=== PATIENT | female | born 1960 | race Caucasian/White ===

== ENCOUNTER → 2022-02-28 08:04 | Outpatient (CLI) | payer OTHER, SELFPAY ==
[2018-03-13 16:05] VITALS: BMI 23.3
--- NOTE | 2022-02-28 | DI.MG.S_ITS ---
BILATERAL DIGITAL SCREENING MAMMOGRAM 3D/2D WITH CAD: 02/28/2022 CLINICAL: Routine screening. Family history of breast cancer. Comparison is made to exams dated: 07/28/2019 mammogram, 07/24/2018 mammogram, and 01/17/2017 mammogram - [facility]. There are scattered fibroglandular elements in both breasts. Current study was also evaluated with a Computer Aided Detection (CAD) system. There is a biopsy clip in the right breast. No significant masses, calcifications, or other findings are seen in either breast. There has been no significant interval change. IMPRESSION: NEGATIVE There is no mammographic evidence of malignancy. A 1 year screening mammogram is recommended. This exam was interpreted at Station ID: [id number]. NOTE: For mammograms, a report in lay terms will be sent to the patient. Approximately 15% of breast malignancies will not be visualized mammographically. In the management of a palpable breast mass, a negative mammogram must not discourage biopsy of a clinically suspicious lesion. Electronically Signed By: Maximo Galeano M.D., jr/julia:02/28/2022 08:45:21 letter sent: Normal Exam ACR BI-RADS Category 1: Negative 3341F
== END ==
PROVIDERS: Family Provider Family Medicine; PCP Family Medicine; Referring Provider Family Medicine; Visit Provider Family Medicine
DX: Z12.31 Encounter for screening mammogram for malignant neoplasm of breast (principal); Z80.3 Family history of malignant neoplasm of breast
CPT/HCPCS: 77063; 77067

== ENCOUNTER → 2024-05-21 11:01 | Outpatient (CLI) | payer OTHER, SELFPAY ==
[2018-03-13 16:05] VITALS: BMI 23.3
--- NOTE | 2024-05-21 | DI.MG.S_ITS ---
BILATERAL DIGITAL SCREENING MAMMOGRAM 3D/2D WITH CAD: 05/21/2024 CLINICAL: Routine screening. Family history of breast cancer. Comparison is made to exams dated: 02/28/2022 mammogram - [facility], 07/28/2019 mammogram, and 07/24/2018 mammogram - [facility]. There are scattered areas of fibroglandular density in both breasts (category b / 25%-50% glandular tissue). Current study was also evaluated with a Computer Aided Detection (CAD) system. There is a biopsy clip in the right breast. No significant masses, calcifications, or other findings are seen in either breast. There has been no significant interval change. IMPRESSION: NEGATIVE There is no mammographic evidence of malignancy. A 1 year screening mammogram is recommended. Based on the Tyrer Cuzick model (a risk assessment model) the patient's lifetime risk is 17.6% and her 10 year risk is 7.8%. According to the ACR, ACS, and NCCN guidelines, an annual breast MRI exam along with mammogram is recommended if the patient's lifetime risk is 20% or greater. This exam was interpreted at Station ID: [id number]. NOTE: For mammograms, a report in lay terms will be sent to the patient. Approximately 15% of breast malignancies will not be visualized mammographically. In the management of a palpable breast mass, a negative mammogram must not discourage biopsy of a clinically suspicious lesion. Electronically Signed By: Homero suresh/julia:05/21/2024 12:19:33 letter sent: Normal Exam ACR BI-RADS Category 1: Negative 3341F
== END ==
LOC: MAMMO 11:02
PROVIDERS: Family Provider Family Medicine; PCP Family Medicine; Referring Provider Family Medicine; Visit Provider Family Medicine
DX: Z12.31 Encounter for screening mammogram for malignant neoplasm of breast (principal); Z80.3 Family history of malignant neoplasm of breast; R92.323 Mammographic fibroglandular density, bilateral breasts
CPT/HCPCS: 77063; 77067

== ENCOUNTER 2024-06-04 07:56 | Day surgery (SDC) | payer OTHER, SELFPAY ==
[2018-03-13 16:05] VITALS: BMI 23.3
[2024-06-04 08:14] VITALS: BP 143/78; PULSE 71; RESP 18; TEMP 36.6; O2SAT 96
[2024-06-04] MEDS: LACTATED RINGERS 1,000 ML 42 ML IV (08:31)
--- NOTE | 2024-06-04 08:32 | SUR.PREOP ---
Aiden to take glasses.
--- NOTE | 2024-06-04 09:02 | PM.HP.1 ---
History of Present Illness History of Present Illness Date Patient Seen: 06/04/24 Time Patient Seen: 09:08 Chief complaint: SDC Narrative: Second colonoscopy, H/o polyps. has been about 10 years since the last. [facility] Medical History Colonoscopy planned Hemorrhoids Amputation foot, unilat Surgical History S/P ankle ligament repair Etters teeth removed History of third molar tooth extraction Status post amputation of extremity Social History household members: spouse, children and friend(s) Smoking Status: Never smoker alcohol intake: current Meds Home Medications and Allergies Home Medications Medication Instructions Recorded Confirmed Type [REDESTA VITAMIN D] 1 wafer PO MONTHLLY ##0 08/28/17 03/11/18 History multivitamin (Multiple Vitamins 1 tab PO QDAY ##0 08/28/17 03/13/18 History tablet) venlafaxine 75 mg capsule,extended 75 mg PO BEDTIME ##0 08/28/17 03/13/18 History release 24 hr (Effexor XR) vitamin B complex (B 1 tab PO QDAY ##0 08/28/17 03/13/18 History Complex-Vitamin B12 tablet) ranitidine HCl 75 mg tablet 75 mg PO PRN PRN GI Upset 03/11/18 03/13/18 History sodium,potassium,mag sulfates 17.5 See Rx Instructions PO .COMPLEX 09/17/23 Rx gram-3.13 gram-1.6 gram oral soln #354 mL (Suprep Bowel Prep Kit) acyclovir 400 mg tablet 400 mg PO BID 06/04/24 06/04/24 History clonidine HCl 0.1 mg tablet 0.2 mg PO ONCE PM 06/04/24 06/04/24 History Allergies Allergy/AdvReac Type Severity Reaction Status Date / Time No Known Allergies Allergy Uncoded 06/04/24 08:09 Review of Systems Review of Systems ROS: Yes All systems reviewed with the patient and are negative except as otherwise documented Exam Vital Signs (past 8 hours): - 06/04/24 08:14 Temperature 97.8 F Pulse Rate 71 Respiratory Rate 18 Blood Pressure 143/78 H Pulse Oximetry 96 Oxygen Delivery Method Room Air Oxygen Delivery Method Room Air Const General: cooperative, healthy appearing and comfortable [facility] Head: normocephalic and atraumatic Eyes General: appearance normal, both eyes and all related structures Sclera: sclerae normal Neck Neck: trachea midline Thyroid: nontender Resp Effort & Inspection: normal respiratory effort and able to speak in complete sentences Cardio Rate: regular rate Rhythm: regular rhythm GI Palpation: soft and No tender Skin General: turgor normal and atrophy Neuro General: patient alert, patient awake and patient oriented x3 Speech: speech normal Psych Appearance: grossly normal and well kempt Mental Status: mental status grossly normal Affect: normal affect Judgment: judgment good Assessment & Plan Assessment & Plan narrative: h/o colon polyps Plan: colonoscopy with anesthesia Time-Based Coding :: [TOTAL MINUTES] spent with patient and on the chart (including review of chart, obtaining history, exam, reviewing outside data, placing orders, documenting exam and treatment plan, and counseling patient) on [DATE].
--- NOTE | 2024-06-04 09:30 | PM.OP.COLON ---
Operative Date/Time/Diagnoses Date of procedure: 06/04/24 Time of procedure: 09:31 Pre-op diagnosis: History of colon polyps Post-op diagnosis: same Procedure & Clinicians Study performed: Colonoscopy with anesthesia Same procedure as scheduled: Yes Indications: History of colon polyps Surgeon: Coretta Felix Procedure Notes Procedure in detail: Preop diagnosis: History of colon polyps Postop diagnosis: Same Operative procedure: Colonoscopy with anesthesia Surgeon: Hannah Felix MD Findings: Normal colonoscopy. However there are pino diverticuli both small and moderate size. Procedure: Patient placed in a lateral position. His external hemorrhoidal tags but normal tone no masses. Scope was inserted into the rectum and advanced to ileocecal valve with minimal difficulty. Insufflation extraction scope and the above findings. Retroflex was included in the rectum. Impression: Small and moderate diverticuli throughout the colon including cecum. No polyps identified. External hemorrhoidal tags Plan: Repeat colonoscopy in 10 years unless otherwise indicated by change in clinical condition Findings: diverticulitis Specimen(s): none sent Complications: none Post-procedure Recommendations: Colonoscopy in 10 years Follow up: as needed Disposition: PACU
[2024-06-04 09:32] VITALS: BP 112/76; PULSE 74; RESP 18; TEMP 36.4; O2SAT 93
[2024-06-04 09:37] VITALS: BP 108/61; PULSE 69; RESP 12; O2SAT 95
[2024-06-04 09:41] VITALS: BP 104/73; PULSE 75; RESP 16; O2SAT 96
[2024-06-04 09:48] VITALS: BP 112/78; PULSE 69; RESP 15; O2SAT 95
== END 2024-06-04 09:50 | disposition home or self-care (01) ==
PROVIDERS: Family Provider Family Medicine; PCP Family Medicine; Referring Provider Surgery; Visit Provider Surgery
PROC: 0DJD8ZZ Inspection of Lower Intestinal Tract, Via Natural or Artificial Opening Endoscopic (ICD-10-PCS; CPT 45378; principal; 2024-06-04 08:45)
DX: Z12.11 Encounter for screening for malignant neoplasm of colon (principal); Z86.010 Personal history of colon polyps; K57.30 Diverticulosis of large intestine without perforation or abscess without bleeding; K64.4 Residual hemorrhoidal skin tags
CPT/HCPCS: 45378; J2704